=== PATIENT | male | born 1995 | race Caucasian/White ===

== ENCOUNTER 2017-11-07 14:18 | Emergency (ER) | payer MEDICAID, OTHER ==
[~2017-11-07] VITALS: Ht 170.2 cm; Wt 75.0 kg
[2017-11-07 15:00] LABS: HEMATOCRIT 47.6 % (39.2-51.8); HEMOGLOBIN 15.9 g/dL (13.7-18.0)
[2017-11-07 15:11] LABS: BLOOD UREA NITROGEN 18 mg/dL (7-18)
[2017-11-07] MEDS ORDERED: ONDANSETRON ODT 4 MG ONE (15:14)
[2017-11-07] MEDS ORDERED: HYDROmorphone 2 MG/ML, 1ML ONE (15:15)
[2017-11-07 15:16] LABS: ASPARTATE AMINO TRANSFERASE 40 U/L (15-37)
[2017-11-07] MEDS ORDERED: ONDANSETRON ODT 4 MG PO ONE (15:30)
[2017-11-07] MEDS ORDERED: HYDROmorphone 2 MG/ML, 1ML IM ONE (15:30)
[2017-11-07] MEDS ORDERED: HYDROcodone/APAP 5/325 TABLET ONE (17:27)
[2017-11-07] MEDS ORDERED: HYDROcodone/APAP 5/325 TABLET PO ONE (17:30)
[2017-11-07 18:08] VITALS: BP 139/79
== END 2017-11-07 18:16 | disposition home or self-care (01) ==
LOC: ED 18:10
DX: S27.0XXA Traumatic pneumothorax, initial encounter (principal); S92.101A Unspecified fracture of right talus, initial encounter for closed fracture; S22.32XA Fracture of one rib, left side, initial encounter for closed fracture; V49.49XA Driver injured in collision with other motor vehicles in traffic accident, initial encounter; Y93.89 Activity, other specified; Y92.488 Other paved roadways as the place of occurrence of the external cause; Y99.8 Other external cause status
CPT/HCPCS: 36415; 71111; 73610; 80053; 81003; 85025; 93005; 96372; 99285; J1170; Q0162

== ENCOUNTER 2017-11-08 11:19 | Emergency (ER) | payer OTHER ==
[~2017-11-08] VITALS: Ht 170.2 cm; Wt 75.0 kg
[2017-11-08 11:23] VITALS: BP 144/78
== END 2017-11-08 12:44 | disposition home or self-care (01) ==
LOC: ED 12:38
DX: S27.0XXD Traumatic pneumothorax, subsequent encounter (principal); V89.2XXD Person injured in unspecified motor-vehicle accident, traffic, subsequent encounter
CPT/HCPCS: 71020; 99284

== ENCOUNTER 2019-03-18 22:34 | Emergency (ER) | payer OTHER ==
[~2019-03-18] VITALS: Ht 172.7 cm; Wt 85.1 kg
[2019-03-18 22:38] VITALS: BP 167/92
[2019-03-18] MEDS ORDERED: HYDROcodone/APAP 5/325 TABLET ONE (22:51)
--- NOTE | 2019-03-18 22:53 | NUR ---
PT MEDICATED PER MAR FOR PAIN.
[2019-03-18] MEDS ORDERED: HYDROcodone/APAP 5/325 TABLET PO ONE (23:00)
--- NOTE | 2019-03-18 23:11 | NUR ---
PT D/C WITH D/C SUMMARY AND SCRIPTS. ALL QUESTIONS ANSWERED. PT AMBULATES TO REGISTRATION DESK WITH STEADY GAIT FOR D/C HOME. PT DENIES ANY OTHER NEEDS PERTAINING TO THIS VISIT.
== END 2019-03-18 23:14 | disposition home or self-care (01) ==
LOC: ED 23:05
DX: K08.89 Other specified disorders of teeth and supporting structures (principal)
CPT/HCPCS: 99283

== ENCOUNTER 2019-03-19 04:53 | Emergency (ER) | payer OTHER ==
[~2019-03-19] VITALS: Ht 172.7 cm; Wt 84.6 kg
[2019-03-19 04:54] VITALS: BP 153/99
[2019-03-19] MEDS ORDERED: HYDROcodone/APAP 5/325 TABLET ONE (05:19)
[2019-03-19] MEDS ORDERED: HYDROcodone/APAP 5/325 TABLET PO ONE (05:30)
== END 2019-03-19 05:59 | disposition home or self-care (01) ==
LOC: ED 05:15
DX: K08.89 Other specified disorders of teeth and supporting structures (principal)
CPT/HCPCS: 99283

== ENCOUNTER 2019-06-27 11:00 | Emergency (ER) | payer OTHER ==
[~2019-06-27] VITALS: Ht 172.7 cm; Wt 62.2 kg
[2019-06-27 11:08] VITALS: BP 136/80
== END 2019-06-27 12:55 | disposition home or self-care (01) ==
LOC: ED 11:41
DX: S62.024A Nondisplaced fracture of middle third of navicular [scaphoid] bone of right wrist, initial encounter for closed fracture (principal); S52.571A Other intraarticular fracture of lower end of right radius, initial encounter for closed fracture; W01.0XXA Fall on same level from slipping, tripping and stumbling without subsequent striking against object, initial encounter; Y93.89 Activity, other specified; Y92.89 Other specified places as the place of occurrence of the external cause; Y99.8 Other external cause status
CPT/HCPCS: 29125; 99283

== ENCOUNTER 2019-06-28 04:23 | Emergency (ER) | payer SELFPAY ==
[~2019-06-28] VITALS: Ht 172.7 cm; Wt 82.0 kg
[2019-06-28 04:25] VITALS: BP 149/89
== END 2019-06-28 05:13 | disposition home or self-care (01) ==
LOC: ED 05:01
DX: T15.02XA Foreign body in cornea, left eye, initial encounter (principal); X58.XXXA Exposure to other specified factors, initial encounter; Y93.89 Activity, other specified; Y92.89 Other specified places as the place of occurrence of the external cause; Y99.8 Other external cause status
CPT/HCPCS: 65222; 99283; 99284